=== PATIENT | male | born 1990 | race Caucasian/White ===

== ENCOUNTER 2023-06-19 18:37 | Emergency (ER) | payer SELFPAY ==
[2023-06-19 18:38] VITALS: BP 133/93; PULSE 74; RESP 17; TEMP 36.7; O2SAT 98; BMI 24.5
--- NOTE | 2023-06-19 18:54 | CT_ITS ---
PROCEDURE INFORMATION: Exam: CT Head Without Contrast Exam date and time: 06/19/2023 7:09 PM Age: 33 years old Clinical indication: Injury or trauma; Fall; Blunt trauma (contusions or hematomas); Consciousness not specified; Patient HX: patient speaks no hungarian. ; Additional info: Head injury, near loc TECHNIQUE: Imaging protocol: Computed tomography of the head without contrast. Radiation optimization: All CT scans at this facility use at least one of these dose optimization techniques: automated exposure control; mA and/or kV adjustment per patient size (includes targeted exams where dose is matched to clinical indication); or iterative reconstruction. REPORTING DATA: Count of CT and Cardiac NM exams in prior 12 months: This patient has received 0 known CTs and 0 known cardiac nuclear medicine studies in the 12 months prior to the current study. COMPARISON: No relevant prior studies available. FINDINGS: Brain: Normal. No hemorrhage. Unremarkable white matter. No mass effect. Cerebral ventricles: No ventriculomegaly. Paranasal sinuses: Visualized sinuses are unremarkable. No fluid levels. Mastoid air cells: Visualized mastoid air cells are well aerated. Bones/joints: Minimally comminuted and inferiorly angulated nasal bone fracture. Soft tissues: Mild nasal bridge soft tissue swelling. IMPRESSION: 1. No acute intracranial findings. 2. Minimally comminuted and inferiorly angulated nasal bone fracture.
--- NOTE | 2023-06-19 18:54 | CT_ITS ---
PROCEDURE INFORMATION: Exam: CT Maxillofacial Without Contrast Exam date and time: 06/19/2023 7:11 PM Age: 33 years old Clinical indication: Injury or trauma; Fall; Blunt trauma (contusions or hematomas); Nose; Patient HX: patient speaks no montenegrin. ; Additional info: Head injury, nasal swelling/ttp TECHNIQUE: Imaging protocol: Computed tomography of the face without contrast. Radiation optimization: All CT scans at this facility use at least one of these dose optimization techniques: automated exposure control; mA and/or kV adjustment per patient size (includes targeted exams where dose is matched to clinical indication); or iterative reconstruction. REPORTING DATA: Count of CT and Cardiac NM exams in prior 12 months: This patient has received 0 known CTs and 0 known cardiac nuclear medicine studies in the 12 months prior to the current study. COMPARISON: CT HEAD/BRAIN WO CON 06/19/2023 7:09 PM FINDINGS: Orbital cavities: Orbits are normal. Globes are unremarkable. Bones/joints: Minimally comminuted and inferiorly angulated nasal bone fracture. Right temporomandibular joint degenerative changes. Paranasal sinuses: Normal. No air-fluid levels. Soft tissues: Mild nasal bridge soft tissue swelling. IMPRESSION: Minimally comminuted and inferiorly angulated nasal bone fracture.
--- NOTE | 2023-06-19 19:11 | [facility].EDGENADL ---
Discharge Plan Disposition Patient Disposition: Home, Self-Care Prescriptions Prescriptions: New amoxicillin-pot clavulanate 875-125 mg tablet 1 tab PO BID Qty: 20 0RF Referrals Follow up/Referrals: Dusty Malloy MD [Physician] - See instructions Provider,MD Alyssa [Primary Care Provider] - See instructions Activity Restrictions/Add. Instructions Additional Instructions/Restrictions: You were evaluated in the emergency department today. Please keep your wound clean and dry. Do not submerge under any water. Your sutures will dissolve over the next 7 to 10 days. Follow-up outpatient with ENT for your nasal bone fracture. We are providing you with the information for Dr. Malloy. You will need to call their office. Return to the emergency department for any new or worsening symptoms. Take Tylenol and ibuprofen at home as needed for pain. Given prescription for antibiotics and take the full course as prescribed. Clinical Impressions Clinical Impression: Fracture, nasal bone, open, Laceration of nose Instructions Patient Instructions: DI for Nose Fracture, DI for Laceration Repair Print Language Print Language: [place]araguan Discharge ED Provider: Lachelle Bear General Adult HPI General Chief complaint: Head Injury Stated complaint: [id number] fall hit nose Time Seen by Provider: 06/19/23 18:56 History of Present Illness HPI narrative: This patient is a 33-year-old male without significant past medical history presenting to the emergency department for evaluation with concern for an injury to his nose. History is obtained with the help of a wood drilling machine operator. He reports that he was walking when something swung and hit him in the nose, he believes that it was a branch. He states that he initially had blurred vision, but that since resolved. He did not lose consciousness. He complains of nasal pain and he did have bleeding from his nose. He also suffered a laceration to his nose. He is unsure when his last tetanus shot was. He denies any other injuries and currently states that his vision is fine. He denies any numbness, tingling, weakness, or other issues. He does note nasal pain. Related Data Previous Rx's Medication Instructions Recorded amoxicillin 875 mg-potassium 1 tab PO BID #20 tabs 06/19/23 clavulanate 125 mg tablet Allergies Allergy/AdvReac Type Severity Reaction Status Date / Time No Known Allergies Allergy Verified 06/19/23 20:18 [facility] Disclaimer: The information contained in this section may have been updated after the patient was seen, as this information can be updated by other users. Social History Smoking Status: Never smoker alcohol intake: never current occupational status: employed Travel in the last 8 weeks: None ROS Obtained: Yes All systems reviewed & no additional complaints except as documented Physical Exam General General appearance: alert and in no apparent distress Head Head exam: normocephalic Eye Eye exam: Present normal appearance, PERRL and EOMI ENT ENT exam: Present normal oropharynx, mucous membranes moist and normal external ear exam Expanded ENT Exam Nose exam: Present laceration (Laceration to the bridge of the nose with associated tenderness to palpation. No deviation or septal hematoma noted. Wound is hemostatic. Both nares are hemostatic at this time but there is dried blood.); Absent nasal deviation or septal hematoma Nasal speculum exam: Bilateral: epistaxis Neck Neck exam: Present normal inspection, full ROM and trachea midline; Absent tenderness Chest Chest inspection: Present normal inspection and symmetric chest wall rise; Absent tenderness Respiratory Respiratory exam: Present normal lung sounds bilaterally; Absent respiratory distress, wheezes, stridor or accessory muscle use Cardiovascular Cardiovascular exam: Present regular rate and normal rhythm Abdomi
[2023-06-19 21:02] VITALS: BP 119/87; PULSE 75; RESP 17; TEMP 36.8; O2SAT 98
== END 2023-06-19 21:05 | disposition home or self-care (01) ==
PROVIDERS: Emergency Provider Emergency Medicine
DX: S02.2XXB Fracture of nasal bones, initial encounter for open fracture (principal); W22.8XXA Striking against or struck by other objects, initial encounter
CPT/HCPCS: 12011; 70450; 70486; 90715; 96372; 99283